=== PATIENT | female | born 1945 | race Caucasian/White ===

== ENCOUNTER 2018-10-20 17:06 | Emergency (ER) | payer BC ==
--- NOTE | 2018-10-20 19:56 | ED ---
HPI Chest Pain - HPI Summary HPI Summary: This patient is a 73 year old F presenting to [facility] with a chief complaint of intermittent bubbly feeling in chest that began on 10/12/18. Patient states her most recent episode of the bubbly feeling starting at 1700 today. The patient rates the pain 0/10 in severity. Symptoms aggravated by anxiety. Symptoms alleviated by nothing. Patient reports anxiety. Pt states the sensation beginning we she had a flare up of her chronic back pain. - History of Current Complaint Chief Complaint: EDChestPainROMI Time Seen by Provider: 10/20/18 19:44 Hx Obtained From: Patient Onset/Duration: Started Weeks Ago, Atraumatic, Still Present Timing: Intermittent Initial Severity: Mild Current Severity: Mild Pain Intensity: 0 Pain Scale Used: 0-10 Numeric Chest Pain Location: Mid Sternal Chest Pain Radiates: No Character: Other: - Bubbly feeling Aggravating Factor(s): Nothing Alleviating Factor(s): Nothing Associated Signs and Symptoms: Positive: Anxiety - Allergy/Home Medications Allergies/Adverse Reactions: Allergies Allergy/AdvReac Type Severity Reaction Status Date / Time Sulfa (Sulfonamide Allergy Hives Verified 10/20/18 17:20 Antibiotics) Adhesive Tape AdvReac See Comment Verified 05/28/14 11:03 Home Medications: Home Medications Metoprolol Tartrate TAB* 50 mg PO BEDTIME 10/20/18 [History Confirmed 10/20/18] Metoprolol Tartrate TAB* 100 mg PO QAM 10/20/18 [History Confirmed 10/20/18] predniSONE TAB* 10 mg PO DAILY 10/20/18 [History Confirmed 10/20/18] PMH/Surg Hx/FS Hx/Imm Hx Previously Healthy: No Endocrine/Hematology History: Reports: Hx Diabetes - TYPE II ON ORAL MEDICATION FOR Cardiovascular History: Reports: Hx Hypertension - ON MEDICATION FOR GI History: Reports: Hx Gastroesophageal Reflux Disease - ON MEDICATION FOR Musculoskeletal History: Reports: Hx Arthritis - BACK Denies: Hx Osteoporosis Sensory History: Reports: Hx Cataracts - LEFT & RT EYE, Hx Contacts or Glasses - GLASSES Denies: Hx Hearing Aid Opthamlomology History: Reports: Hx Cataracts - LEFT & RT EYE, Hx Contacts or Glasses - GLASSES - Cancer History Hx Chemotherapy: No Hx Radiation Therapy: Yes - UTERINE CA - Surgical History Surgery Procedure, Year, and Place: 2003 GALLBLADDER-- [facility]. 01/07/14 LEFT EYE CATARACT [facility] Hx Anesthesia Reactions: No Infectious Disease History: No Infectious Disease History: Denies: Traveled Outside the [place] in Last 30 Days - Family History Known Family History: Positive: Other - Breast CA - Social History Occupation: Employed Full-time Lives: Alone Alcohol Use: None Hx Substance Use: No Substance Use Type: Reports: None Hx Tobacco Use: No Smoking Status (MU): Never Smoked Tobacco Review of Systems Positive: Other - Positive "bubble feeling" in chest Positive: Anxious All Other Systems Reviewed And Are Negative: Yes Physical Exam - Summary Physical Exam Summary: VITAL SIGNS: Reviewed. GENERAL: Patient is a well-developed and nourished female who is lying comfortable in the stretcher. Patient is not in any acute respiratory distress. HEAD AND FACE: No signs of trauma. No ecchymosis, hematomas or skull depressions. No sinus tenderness. EYES: PERRLA, EOMI x 2, No injected conjunctiva, no nystagmus. EARS: Hearing grossly intact. Ear canals and tympanic membranes are within normal limits. MOUTH: Oropharynx within normal limits. NECK: Supple, trachea is midline, no adenopathy, no JVD, no carotid bruit, no c- spine tenderness, neck with full ROM. CHEST: Symmetric, no tenderness at palpation LUNGS: Clear to auscultation bilaterally. No wheezing or crackles. CVS: Regular rate and rhythm, S1 and S2 present, no murmurs or gallops appreciated. ABDOMEN: Soft, non-tender. No signs of distention. No rebound no guarding, and no masses palpated. Bowel sounds are normal. EXTREMITIES: FROM in all major joints, no edema, no cyanosis or clubbing. NEURO: Alert and oriented x 3. No acute neurological deficits. Speech is normal and follows commands. SKIN: Dry and warm Triage Information Reviewed: Yes Vital Signs On Initial Exam: Initial Vitals Temp Pulse Resp BP Pulse Ox 98.5 F 76 18 183/105 100 10/20/18 17:15 10/20/18 17:15 10/20/18 17:15 10/20/18 17:15 10/20/18 17:15 Vital Signs Reviewed: Yes Diagnostics - Vital Signs Vital Signs Temp Pulse Resp BP Pulse Ox 10/20/18 17:15 98.5 F 76 18 183/105 100 - Laboratory Result Diagrams: 10/20/18 20:10 10/20/18 20:10 Lab Statement: Any lab studies that have been ordered have been reviewed, and results considered in the medical decision making process. - EKG 1727 Cardiac Rate: NL EKG Rhythm: Sinus Rhythm - [address] Segment: Normal Ectopy: None Summary of EKG Findings: An EKG taken at 1727 reveals nml sinus rhythm at 74 BPM with nml axis, nml intervals, and no ischemic changes. Re-Evaluation - Re-Evaluation First Eval Re-Evaluation Time: 21:20 Change: Improved Comment: Patient states her symptoms have improved Chest Pain Course/Dx - Course Course Of Treatment: This patient is a 73 year old F presenting to [facility] with a chief complaint of intermittent bubbly feeling in chest that began on . Physical Exam Findings: Nml. An EKG taken at 1727 reveals nml sinus rhythm at 74 BPM with nml axis, nml intervals, and no ischemic changes. Bloodwork obtained. In the ED course the patient was given Xanax and protonix. Patient will be discharged with follow up from PCP. The patient is agreeable with this plan. - Diagnoses Provider Diagnoses: GERD (gastroesophageal reflux disease), Atypical chest pain, Anxiety Discharge - Sign-Out/Discharge Documenting (check all that apply): Patient Departure - Discharge home Patient Received Moderate/Deep Sedation with Procedure: No - Discharge Plan Condition: Stable Disposition: HOME Patient Education Materials: Gastroesophageal Reflux Disease (ED), Chest Pain ( ED), Anxiety (ED) Referrals: Brittany Doyle MD [Primary Care Provider] - Additional Instructions: AVOID TAKING MOTRIN RETURN TO THE EMERGENCY DEPARTMENT FOR NEW OR WORSENING SYMPTOMS - Attestation Statements Document Initiated by Scribe: Yes Documenting Scribe: Zofia Kim Provider For Whom Nickieibe is Documenting (Include Credential): Dr. Carmita Gonzalez MD Scribe Attestation: I, Zfoia Kim, scribed for Dr. Carmita Gonzalez MD on 10/20/18 at 2121. Status of Scribe Document: Ready
[2018-10-20] MEDS ORDERED: Pantoprazole TAB * 40 MG TAB PO ONE (19:58)
[2018-10-20] MEDS ORDERED: ALPRAZolam TAB* 0.25 MG PO ONE (19:58)
[2018-10-20 20:22] LABS: ABS Basophils 0 10^3/ul (0-0.2); ABS Eosinophils 0.1 10^3/ul (0-0.6); ABS Lymphocytes 1.2 10^3/ul (1.0-4.8); ABS Monocytes 0.7 10^3/ul (0-0.8); ABS Neutrophils 8.7 10^3/ul (1.5-7.7); ABS Nucleated RBC 0 10^3/ul; Eosinophil % 1.1 %; Hematocrit 37 % (33-41); Hemoglobin 12.4 g/dL (12.0-16.0); Lymphocyte % 11.2 %; Mean Corpuscular HGB Conc 33 g/dL (31-36); Mean Corpuscular Hemoglobin 28 pg (27-31); Mean Corpuscular Volume 84 fL (80-97); Mean Platelet Volume 8.2 fL (7.4-10.4); Nucleated Red Blood Cells % 0; Platelet Count 337 10^3/uL (150-450); Red Blood Count 4.44 10^6 /uL (3.70-4.87); Red Cell Distribution Width 14 % (10.5-15); White Blood Count 10.8 10^3/uL (3.5-10.8)
[2018-10-20 20:29] LABS: Activated Partial Thrombo Time 27.9 seconds (26.0-36.3); INR 1.06 (0.77-1.02)
[2018-10-20 20:37] LABS: Albumin 4.3 g/dL (3.2-5.2); Albumin/Globulin Ratio 1.8 (1-3); BUN/Creatinine Ratio 23.1 (8-20); Calcium 9.5 mg/dL (8.6-10.3); EGFR African American 55.2 (>60); EGFR Non-African American 45.6 (>60); Globulin 2.4 g/dL (2-4); Magnesium 1.6 mg/dL (1.9-2.7); Potassium 4.5 mmol/L (3.5-5.0); Total Bilirubin 0.3 mg/dL (0.2-1.0); Total Protein 6.7 g/dL (6.4-8.9)
[2018-10-20 21:24] VITALS: BP 136/64
== END 2018-10-20 21:42 | disposition home or self-care (01) ==
LOC: ED 17:06
DX: K21.9 Gastro-esophageal reflux disease without esophagitis (principal); R07.89 Other chest pain; F41.9 Anxiety disorder, unspecified; E11.9 Type 2 diabetes mellitus without complications; Z79.84 Long term (current) use of oral hypoglycemic drugs; I10 Essential (primary) hypertension; Z88.2 Allergy status to sulfonamides; Z91.048 Other nonmedicinal substance allergy status
CPT/HCPCS: 36415; 80053; 83735; 84484; 85025; 85610; 85730; 93005; 99283; A9270-GY